=== PATIENT | male | born 2005 | race African-American/Black ===

== ENCOUNTER 2023-06-27 16:42 | Inpatient (IN) | payer SELFPAY ==
[~2023-06-27 16:42] MED LIST: Iopamidol-370 76% 500 ML MDV (1 ML CHARGE) ONE
[2023-06-27 17:18] LABS: #Basophils 0.1 thou/uL (0.0-0.2); #Monocytes 2.4 thou/uL (0.11-0.59); %Basophils 0.5 % (0.0-1.0); %Eosinophils 0.3 % (0.0-10.0); %Lymphocytes 10.9 % (28.0-48.0); %Neutrophils 70.9 % (31.0-61.0); Hematocrit 44.4 % (42.0-52.0); Hemoglobin 14.9 g/dL (14.0-18.0); Mean Corpuscular HGB CONC 33.6 g/dL (32.0-36.0); Mean Corpuscular Hemoglobin 29.4 pg (25.0-35.0); Mean Corpuscular Volume 87.7 fl (78.0-98.0); Mean Platelet Volume 9.1 fL (7.4-10.4); Platelet Count 285 10x3/uL (130-400); RBC Distribution Width 11.9 % (11.5-14.5); Red Blood Cell (RBC) Count 5.06 mill/uL (4.00-5.20); White Blood Cell (WBC) Count 14.2 10x3/uL (4.8-10.8)
[2023-06-27 17:50] LABS: ALT (SGPT) 98 U/L (8-55); AST (SGOT) 84 U/L (5-34); Albumin 4.3 g/dL (3.5-5.0); Alkaline Phosphatase 98 U/L (50-130); Anion Gap 17 mmol/L (10-20); BUN (Urea Nitrogen) 8 mg/dL (8.9-20.6); Bilirubin, Total 0.7 mg/dL (0.2-1.2); Calc. Creatinine Clearance 0 mL/min (70-130); Calcium 10.4 mg/dL (7.8-10.44); Carbon Dioxide 24 mmol/L (22-29); Chloride 99 mmol/L (98-107); Estimated GFR 95; Globulin 4.3 g/dL (2.4-3.5); Glucose 100 mg/dL (70-105); Lipase 7 U/L (8-78); Potassium 3.8 mmol/L (3.5-5.1); Protein, Total 8.6 g/dL (6.0-8.3); Sodium 136 mmol/L (136-145)
[2023-06-27] MEDS ORDERED: Acetaminophen 500 MG TAB ONE (17:55)
[2023-06-27] MEDS ORDERED: Ondansetron PF 4 MG/2 ML Vial ONE (17:55)
[2023-06-27 18:30] LABS: INR-International Normal Ratio 1.1; PTT 30.4 sec (22.9-36.1)
[2023-06-27 18:42] LABS: Troponin I 0.075 ng/mL (< 0.028)
[2023-06-27] MEDS ORDERED: Aspirin Chewable 81 MG TAB ONE (19:09)
[2023-06-27] MEDS ORDERED: Bicillin LA 1.2 MILLION UNITS/2 ML SYRINGE ONE (21:05)
[2023-06-27 21:11] LABS: SARS-CoV-2 NAA Rapid Test Not Detected (NotDetected)
[2023-06-27 22:35] LABS: Troponin I 0.176 ng/mL (< 0.028)
[2023-06-27 22:40] LABS: Bacteria/HPF None Seen HPF (None Seen); Bilirubin Negative (Negative); Blood, Urine Negative (Negative); CAUTI Indications for Culture Pelvic or flank pain; Clarity Clear (Clear); Glucose, Urine (Dipstick) Normal (Negative); Ketone, Urine 150 mg/dL (Negative); Leukocyte Negative Leu/uL (Negative); Nitrite Negative (Negative); Protein, Urine (Dipstick) 100 mg/dL (Neg-Trace); RBC/HPF None Seen HPF (0-3); Squamous Epithelial None Seen HPF (0-3); Urobilinogen 6 mg/dL (Less than 2); WBC/HPF 0-3 HPF (0-3); pH, Urine 6.5 (5.0-9.0)
[2023-06-27 22:42] LABS: Specific Gravity, Urine Greater than 1.060 (1.002-1.036)
[2023-06-27 22:44] LABS: Urine Culture Reflex No No
[2023-06-27] MEDS ORDERED: Ondansetron PF 4 MG/2 ML Vial IVP PRN (23:45)
[2023-06-27] MEDS ORDERED: Ondansetron ODT 4 MG TAB SL PRN (23:45)
[2023-06-27] MEDS ORDERED: Acetaminophen 325 MG TAB PO PRN (23:45)
[2023-06-28] MEDS ORDERED: Pantoprazole 40 MG VIAL IVP SCH (00:30)
[2023-06-28 02:06] VITALS: BMI 26.9
[2023-06-28 04:04] LABS: #Basophils 0.1 thou/uL (0.0-0.2); #Eosinphils 0.2 thou/uL (0.0-0.7); #Monocytes 2.1 thou/uL (0.11-0.59); #Neutrophils 8.3 thou/uL (1.40-6.50); %Basophils 0.6 % (0.0-1.0); %Eosinophils 1.4 % (0.0-10.0); %Lymphocytes 15.3 % (28.0-48.0); %Monocytes 16.4 % (0.0-4.0); %Neutrophils 65.7 % (31.0-61.0); Hematocrit 40.1 % (42.0-52.0); Hemoglobin 13.4 g/dL (14.0-18.0); Mean Corpuscular HGB CONC 33.4 g/dL (32.0-36.0); Mean Corpuscular Hemoglobin 28.8 pg (25.0-35.0); Mean Corpuscular Volume 86.1 fl (78.0-98.0); Mean Platelet Volume 9.3 fL (7.4-10.4); Platelet Count 267 10x3/uL (130-400); RBC Distribution Width 12.1 % (11.5-14.5); Red Blood Cell (RBC) Count 4.66 mill/uL (4.00-5.20); White Blood Cell (WBC) Count 12.7 10x3/uL (4.8-10.8)
[2023-06-28 04:47] LABS: ALT (SGPT) 75 U/L (8-55); AST (SGOT) 57 U/L (5-34); Albumin 3.7 g/dL (3.5-5.0); Alkaline Phosphatase 91 U/L (50-130); Anion Gap 12 mmol/L (10-20); BUN (Urea Nitrogen) 8 mg/dL (8.9-20.6); Bilirubin, Total 0.5 mg/dL (0.2-1.2); Calc. Creatinine Clearance 157 mL/min (70-130); Calcium 9.5 mg/dL (7.8-10.44); Carbon Dioxide 24 mmol/L (22-29); Cardiac Risk 5.3 (Less than 4.5); Chloride 103 mmol/L (98-107); Cholesterol 138 mg/dl (< 200 Desired); Estimated GFR 129; Globulin 3.5 g/dL (2.4-3.5); Glucose 123 mg/dL (70-105); HDL Cholesterol 26 mg/dL (>60 Neg Risk); LDL Cholesterol, Calculated 95 mg/dL; Potassium 3.4 mmol/L (3.5-5.1); Protein, Total 7.2 g/dL (6.0-8.3); Sodium 136 mmol/L (136-145); Triglycerides 85 mg/dL (Less than 150)
[2023-06-28 05:15] LABS: Troponin I 0.236 ng/mL (< 0.028)
[2023-06-28 08:00] LABS: Troponin I 0.252 ng/mL (< 0.028)
[2023-06-28] MEDS ORDERED: FLU VACC QS2023-24(6MOS UP)/PF 60 MCG/0.5 ML SYRINGE IM ONE (09:00)
[2023-06-28] MEDS ORDERED: AMOXicillin 250 MG CAP PO SCH ×2 (10:00→21:00)
[2023-06-28] MEDS: Benzocaine/Menthol 1 LOZ LOZ PO PRN (11:33)
[2023-06-28] MEDS ORDERED: Iopamidol 370 76% 100 ML VIAL ONE (12:20)
[2023-06-28] MEDS ORDERED: Acetaminophen 325 MG TAB PO PRN (15:37)
[2023-06-28] MEDS ORDERED: Electrolyte Replacement Protocol 1 EACH FS SCH (15:42)
[2023-06-28] MEDS: Potassium Chloride 20 MEQ in Premix Bag 1 BAG IVPB SCH ×2 (17:25→18:31)
[2023-06-29 04:50] LABS: Hematocrit 41.6 % (42.0-52.0); Mean Corpuscular HGB CONC 33.7 g/dL (32.0-36.0); Mean Corpuscular Hemoglobin 28.9 pg (25.0-35.0); Platelet Count 295 10x3/uL (130-400); Red Blood Cell (RBC) Count 4.84 mill/uL (4.00-5.20); White Blood Cell (WBC) Count 11.1 10x3/uL (4.8-10.8)
[2023-06-29 05:22] LABS: ALT (SGPT) 57 U/L (8-55); AST (SGOT) 38 U/L (5-34); Albumin 4.2 g/dL (3.5-5.0); Alkaline Phosphatase 80 U/L (50-130); Anion Gap 14 mmol/L (10-20); BUN (Urea Nitrogen) 7 mg/dL (8.9-20.6); Bilirubin, Direct 0.2 mg/dL (0.1-0.3); Bilirubin, Total 0.4 mg/dL (0.2-1.2); Calc. Creatinine Clearance 159 mL/min (70-130); Calcium 9.9 mg/dL (7.8-10.44); Carbon Dioxide 27 mmol/L (22-29); Chloride 101 mmol/L (98-107); Estimated GFR 129; Glucose 93 mg/dL (70-105); Potassium 3.5 mmol/L (3.5-5.1); Protein, Total 7.6 g/dL (6.0-8.3); Sodium 138 mmol/L (136-145)
[2023-06-29 05:28] LABS: Delete Auto Diff?? YES; Manual Diff?? YES
[2023-06-29] MEDS: Benzocaine/Menthol 1 LOZ LOZ PO PRN (06:00)
[2023-06-29 07:36] LABS: Band 7 % (5-11); CellaVision Operator ID LAB.GE; Lymphocytes 17 % (28-48); Monocytes 18 % (0-4); Neutrophil 54 % (31-61); Platelet Adequacy Comment Platelets Normal; Polychromasia MODERATE = 3-4 cells HPF (0-2); Reactive Lymphocytes 3 % (0-10); Total Cell Count 102
[2023-06-29] MEDS ORDERED: Potassium Chloride 20 MEQ TAB PO SCH (08:00)
[2023-06-29 08:36] LABS: Potassium 3.5 mmol/L (3.5-5.1)
[2023-06-29] MEDS ORDERED: AMOXicillin 250 MG CAP PO SCH (09:00)
[2023-06-29 10:09] LABS: MONO NEGATIVE CONTROL ZONE White (Negative) (White); MONO POSITIVE CONTROL Pink Line (Positive) (PINK/RED); Mononucleosis NEGATIVE (NEGATIVE)
[2023-06-29] MEDS ORDERED: Regadenoson 0.4 MG/5 ML SYRINGE ONE (11:49)
[2023-06-29 15:32] VITALS: BP 121/66; TEMP 98.2
== END 2023-06-29 19:31 | disposition home or self-care (01) | DRG 313 ==
LOC: ERS 16:42 → 2SW 23:43 → OBSVTOIN 06-28 12:13
PROVIDERS: ADMIT Internal Medicine; ATTEND Internal Medicine
DX: R07.89 Other chest pain (principal); R04.2 Hemoptysis; F32.A Depression, unspecified; F10.90 Alcohol use, unspecified, uncomplicated; F12.90 Cannabis use, unspecified, uncomplicated; J02.0 Streptococcal pharyngitis; R74.8 Abnormal levels of other serum enzymes; E78.5 Hyperlipidemia, unspecified; B34.9 Viral infection, unspecified; Z11.52 Encounter for screening for COVID-19; R79.89 Other specified abnormal findings of blood chemistry; R74.01 Elevation of levels of liver transaminase levels; I88.8 Other nonspecific lymphadenitis; I34.0 Nonrheumatic mitral (valve) insufficiency; Z82.49 Family history of ischemic heart disease and other diseases of the circulatory system; F17.210 Nicotine dependence, cigarettes, uncomplicated
CPT/HCPCS: 36415; 71045; 71275; 74177; 78452; 80048; 80053; 80061; 80076; 81001; 83605; 83690; 83880; 84443; 84484; 85025; 85379; 85610; 85730; 86308; 86850; 86900; 86901; 87040; 87149; 87430; 93005; 93017; 93306; 96372; 96374; 96375; A9500; C9113; G0378; J0561; J1650; J2405; J2785; Q9967